=== PATIENT | female | born 1960 | race American Indian/Alaskan Native ===

== ENCOUNTER 2017-07-13 00:18 | Emergency (ER) | payer MEDICAID ==
[~2017-07-13] VITALS: Ht 154.9 cm; Wt 114.8 kg
[~2017-07-13 00:18] MED LIST: CIPR500T87 PO; INSU100C5 SQ-INSULIN; INSU100I28 SQ-INSULIN; LISI5TAB7 PO; METF500T4 PO
[2017-07-13 00:55] LABS: PATH.CAST-FLAG NOT PRESENT; SPERM-FLAG NOT PRESENT; SRC-FLAG NOT PRESENT; XTAL-FLAG NOT PRESENT; YLC-FLAG NOT PRESENT
[2017-07-13 01:43] VITALS: BP 144/91
== END 2017-07-13 01:47 | disposition home or self-care (01) ==
LOC: ED 01:18
DX: N30.00 Acute cystitis without hematuria (principal); E11.9 Type 2 diabetes mellitus without complications; I10 Essential (primary) hypertension; F17.200 Nicotine dependence, unspecified, uncomplicated
CPT/HCPCS: 81001; 82962; 87077; 87086; 87186; 99284

== ENCOUNTER 2017-11-01 10:57 | Emergency (ER) | payer MEDICAID ==
[~2017-11-01] VITALS: Ht 154.9 cm; Wt 116.8 kg
[2017-11-01 12:04] LABS: MICROSCOPIC INDICATED
[2017-11-01 12:16] VITALS: BP 143/99
== END 2017-11-01 13:06 | disposition home or self-care (01) ==
LOC: ED 12:25
DX: N39.0 Urinary tract infection, site not specified (principal); E11.9 Type 2 diabetes mellitus without complications; I10 Essential (primary) hypertension
CPT/HCPCS: 81001; 99283